=== PATIENT | female | born 1980 | race Two or more races ===

== ENCOUNTER 2023-06-25 11:08 | Emergency (ER) | payer MEDICAID ==
[~2023-06-25] VITALS: Ht 160 cm; Wt 92.0 kg
[2023-06-25 12:09] LABS: Urine Bacteria NONE SEEN /hpf (None Seen); Urine Blood Negative /uL (Negative); Urine Clarity Clear (Clear); Urine Color Yellow (Yellow); Urine Mucus FEW (None Seen); Urine Protein, UAD Negative (Negative); Urine Specific Gravity 1.027 (1.001-1.035); Urine Urobilinogen Normal (Negative); Urine WBC <1 /hpf (0 - 5); Urine pH 6.5 (5.0-8.0)
[2023-06-25 12:50] VITALS: BP 119/65; PULSE 84; RESP 14; TEMP 98.2
[2023-06-25 13:06] VITALS: O2SAT 97
== END 2023-06-25 14:30 | disposition home or self-care (01) ==
LOC: ER 11:08
DX: O26.892 Other specified pregnancy related conditions, second trimester (principal); M54.50 Low back pain, unspecified; Z3A.16 16 weeks gestation of pregnancy; W06.XXXA Fall from bed, initial encounter; Y93.89 Activity, other specified; Y92.89 Other specified places as the place of occurrence of the external cause; Y99.8 Other external cause status
CPT/HCPCS: 76805; 81001